=== PATIENT | female | born 1990 | race Caucasian/White ===

== ENCOUNTER 2024-02-08 00:20 | Emergency (ER) | payer MEDICARE, OTHER ==
[~2024-02-08] VITALS: Ht 175.3 cm; Wt 93.2 kg
[2024-02-08] MEDS: DexAMETHasone SOD PHOS 10MG/1ML VIAL INJ IM ONE (00:49)
[2024-02-08] MEDS: IPRATROPIUM BROM 0.5 MG/2.5ML INH SOL NEB ONE (00:56)
[2024-02-08] MEDS: ALBUTEROL SULF 2.5 MG/0.5ML(0.5%) NEB SOLN NEB ONE (00:56)
[2024-02-08] MEDS ORDERED: ALBU108A5 IN (01:35)
[2024-02-08 01:50] VITALS: BP 126/71; PULSE 76; RESP 18; TEMP 97.9; O2SAT 97
== END 2024-02-08 01:52 | disposition home or self-care (01) ==
LOC: ER 00:20
DX: J45.901 Unspecified asthma with (acute) exacerbation (principal)
CPT/HCPCS: 94640; 96372; 99283; J1100; J7644